=== PATIENT | female | born 1955 | race Caucasian/White ===

== ENCOUNTER 2017-04-09 03:49 | Emergency (ER) | payer OTHER ==
[~2017-04-09] VITALS: Ht 165.1 cm; Wt 70.5 kg
[2017-04-09] MEDS ORDERED: CIPRO250 M1 PO (04:35)
[2017-04-09] MEDS ORDERED: PYRIDIUM200 M2 PO (04:35)
[2017-04-09 04:43] VITALS: BP 136/91
== END 2017-04-09 04:44 | disposition home or self-care (01) ==
LOC: ED 03:49
DX: N39.0 Urinary tract infection, site not specified (principal); F41.9 Anxiety disorder, unspecified

== ENCOUNTER → 2018-08-05 | Outpatient (CLI) | payer BC ==
[~2018-08-05] MED LIST: CIPRO250 M1 PO; PYRIDIUM200 M2 PO
== END ==
LOC: MAMMO 10:00
DX: Z12.31 Encounter for screening mammogram for malignant neoplasm of breast (principal)

== ENCOUNTER → 2018-10-14 | Outpatient (CLI) | payer BC ==
[2018-10-14 11:07] LABS: EOS # 0.1 (0.04-0.40); EOS % 0.9 % (1.0-5.0); LYMPH# 2.3 (1.50-4.00); MEAN CELL VOLUME 98 fl (78-100); MEAN CORPUSCULAR HEMOGLOBIN 33 pg (27-31); MEAN CORPUSCULAR HGB CONC 33 g/dL (33-37); MEAN PLATELET VOLUME 10.4 fl (7.4-10.4); MONO # 0.5 (0.20-0.80); NEU # 4.9 (1.40-6.50); PLATELET COUNT 343 K/mm3 (130-400); RED CELL DISTRIBUTION WIDTH 12.7 % (11.5-14.5); WHITE BLOOD COUNT 7.8 K/mm3 (4.8-10.8)
[2018-10-14 12:12] LABS: ALBUMIN 4.6 g/dL (3.5-5.0); CALCIUM 9.5 mg/dL (8.4-10.2); POTASSIUM 5.2 mmol/L (3.6-5.0); TOTAL BILIRUBIN 0.5 mg/dL (0.2-1.3); TOTAL PROTEIN 7.3 g/dL (6.3-8.2)
== END ==
LOC: LAB 10:48
PROVIDERS: Family Medicine
DX: Z00.00 Encounter for general adult medical examination without abnormal findings (principal)

== ENCOUNTER → 2019-03-29 | Day surgery (SDC) | payer BC | LOC: MSO 07:15 | DX: Z12.11 Encounter for screening for malignant neoplasm of colon (principal); Z79.82 Long term (current) use of aspirin; F32.9 Major depressive disorder, single episode, unspecified; F41.9 Anxiety disorder, unspecified | CPT/HCPCS: 00812; J2704; J7120 ==

== ENCOUNTER → 2020-05-17 | Outpatient (CLI) | payer BC | LOC: MAMMO 15:02 | DX: Z12.31 Encounter for screening mammogram for malignant neoplasm of breast (principal) ==

== ENCOUNTER → 2020-05-24 | Outpatient (CLI) | payer BC | LOC: LAB 09:19 | DX: J34.89 Other specified disorders of nose and nasal sinuses (principal); R68.83 Chills (without fever); R51 Headache; H57.89 Other specified disorders of eye and adnexa; Z20.828 Contact with and (suspected) exposure to other viral communicable diseases ==